=== PATIENT | male | born 1945 ===

== ENCOUNTER 2020-03-06 07:44 | Day surgery (SDC) | payer OTHER ==
[~2020-03-06 07:44] MED LIST: ARICEPT10 MG; ATORVASTATIN CA20 MG PO; ESTAZOLAM2 MG PO; HORIZANT300 MG PO; MEMANTINE HCL10 MG PO; NEPHRO-VITE TA0.8 MG PO; TIROSINT112 MCG PO; [UNRECOGNIZED DRUG - OTHER] PO; [UNRECOGNIZED DRUG - OTHER] PO; [UNRECOGNIZED DRUG - OTHER] PO
[2020-03-06] MEDS ORDERED: COLACE100 MG PO (13:15)
[2020-03-06] MEDS ORDERED: PERCOCET 5-3251 EACH PO (13:15)
[2020-03-06] MEDS ORDERED: NEURONTIN300 MG PO (13:32)
== END 2020-03-06 19:10 | disposition home or self-care (01) ==
LOC: CIR.AMB 07:44
PROVIDERS: ATTEND Surgery
DX: K64.8 Other hemorrhoids (principal); K64.1 Second degree hemorrhoids; Z20.828 Contact with and (suspected) exposure to other viral communicable diseases